=== PATIENT | male | born 1980 | race Caucasian/White ===

== ENCOUNTER → 2016-09-02 | Outpatient (CLI) | payer OTHER ==
[~2016-09-02] MED LIST: CEPHALEXIN250 M1 PO; FISH OIL SUPER1 SGL PO; GLUCOSAMINE & C1 TA3 PO; MULTI VITAMINS1 TAB PO; NO HOME MEDICATIONS; PREDNISONE10 MG PO; ZOFRAN 4MG T4 MG/TAB PO
== END ==
LOC: COL.RAD 07:30
DX: N50.3 Cyst of epididymis (principal)